=== PATIENT | male | born 1945 | race Caucasian/White ===

== ENCOUNTER 2016-10-07 06:55 | Inpatient (IN) | payer MEDICARE, BC ==
[~2016-10-07] VITALS: Ht 175.3 cm; Wt 96.2 kg
[2016-10-07] VITALS (12 sets, daily range): BP systolic 131–163; BP diastolic 64–98
[2016-10-07] MEDS ORDERED: ALPHA LIPOIC A300 MG PO (07:29)
[2016-10-07] MEDS ORDERED: OMEPRAZOLE MAGN20 MG PO (07:29)
[2016-10-07] MEDS ORDERED: BENAZEPRIL HCL20 MG ORAL (07:29)
[2016-10-07] MEDS ORDERED: ATORVASTATIN CA40 MG ORAL (07:29)
[2016-10-07] MEDS ORDERED: COREG25 MG ORAL (07:29)
[2016-10-07] MEDS ORDERED: AMLODIPINE BES2.5 MG ORAL (07:29)
[2016-10-07] MEDS ORDERED: GLUCOPHAGE XR500 MG ORAL (07:29)
--- NOTE | 2016-10-07 07:29 | Pre-Procedure Note/Attestation ---
Pre-Procedure Note/Attestation Complete Prior to Procedure Planned Procedure: right Procedure Narrative: Right knee arthroplasty Indications for Procedure Pre-Operative Diagnosis: Right knee arthritis Attestation I attest that I discussed the nature of the procedure; its benefits; risks and complications; and alternatives (and the risks and benefits of such alternatives ), prior to the procedure, with the patient (or the patient's legal investment representative). I attest that, if there was a reasonable possibility of needing a blood transfusion, the patient (or the patient's legal investment representative) was given the [facility] standardized written summary, pursuant to the [place] Blood Safety Act ([place] Health and Safety Code # 1645, as amended). I attest that I re-evaluated the patient just prior to the surgery and that there has been no change in the patient's H&P, except as documented below: ADAM SHAH Oct 07, 2016 07:29
[2016-10-07 08:25] LABS: BASOPHILS % (AUTO) 0.8 % (0.0-2.0); EOSINOPHILS % (AUTO) 2.4 % (0.0-3.0); LYMPHOCYTES % (AUTO) 20.8 % (20.0-45.0); MEAN CORPUSCULAR HEMOGLOBIN 26.9 PG (27.0-31.0); MEAN CORPUSCULAR HGB CONC 31.2 G/DL (32.0-36.0); MEAN CORPUSCULAR VOLUME 86 FL (80-99); MEAN PLATELET VOLUME 10.7 FL (6.5-10.1); PLATELET COUNT 141 K/UL (150-450); RED BLOOD COUNT 4.91 M/UL (4.70-6.10); RED CELL DISTRIBUTION WIDTH 13.9 % (11.6-14.8); WHITE BLOOD COUNT 6.1 K/UL (4.8-10.8)
[2016-10-07 08:35] LABS: PROTHROMBIN TIME 10.7 SEC (9.30-11.50)
[2016-10-07 08:38] LABS: ANION GAP 13 (5-15); CALCIUM 9.6 mg/dL (8.6-10.2); CARBON DIOXIDE 26 mEQ/L (20-30); CHLORIDE 105 mEQ/L (98-107); CREATININE 1.1 mg/dL (0.7-1.2); HEMOLYSIS 12; POTASSIUM 3.7 mEQ/L (3.4-4.9); SODIUM 144 mEQ/L (135-145)
[2016-10-07] MEDS ORDERED: Enoxaparin 40mg Inj SUBQ SCH (09:00)
--- NOTE | 2016-10-07 09:09 | Diagnostic Imaging Report ---
Indication: Dyspnea Comparison: None A single view chest radiograph was obtained. Findings: Left hemidiaphragm is elevated. No definite infiltrate or pulmonary vascular congestion identified. The heart is enlarged. The aorta is mildly enlarged consistent with atherosclerotic vascular disease. The bones are osteopenic. Impression: No acute disease
[2016-10-07] MEDS ORDERED: Ropivacaine 5mg/ml Vial 20ml INJ ONE (09:18)
[2016-10-07] MEDS ORDERED: Bacitracin 50000 Units Vial ONE ×2 (09:20→11:33)
[2016-10-07] MEDS ORDERED: Ketorolac 60mg Inj ONE (09:20)
[2016-10-07] MEDS ORDERED: Dexamethasone 4mg/ml vial ONE (09:20)
[2016-10-07] MEDS ORDERED: Bupivacaine w/Epi 0.25% 30ml Vial INJ ONE (09:49)
[2016-10-07] MEDS ORDERED: Bupivacaine w/Epi 0.5% 30ml Vial INJ ONE (09:49)
[2016-10-07] MEDS ORDERED: NS Irrig 1000ml ONE (10:00)
[2016-10-07] MEDS ORDERED: fentaNYL 100 mcg/2 mL IV ONE (10:00)
[2016-10-07] MEDS ORDERED: Propofol 10mg/ml 100ml btl IV ONE (10:00)
[2016-10-07] MEDS ORDERED: Sterile Water Irrig 1000ml IRRIG ONE (10:00)
[2016-10-07] MEDS ORDERED: LR 1000ml ONE (10:00)
[2016-10-07] MEDS ORDERED: LR 1000ml 1,000 ML IVLG SCH (11:12)
--- NOTE | 2016-10-07 11:12 | Anethesia Preoperative Eval ---
Anesthesia Pre-op PMH/ROS General Date of Evaluation: Oct 07, 2016 Time of Evaluation: 09:48 Anesthesiologist: Brittny ASA Score: ASA 3 Mallampati Score Class I : Soft palate, uvula, fauces, pillars visible Class II: Soft palate, uvula, fauces visible Class III: Soft palate, base of uvula visible Class IV: Only hard plate visible Mallampati Classification: Class III Surgeon: Rosas Diagnosis: R knee DJD Surgical Procedure: R knee TKA Anesthesia History: none Social History: smoking - h/o Family History: no anesthesia problems Allergies: Coded Allergies: IODINATED CONTRAST- ORAL AND IV DYE (Unverified Allergy, Unknown, 10/06/16) Uncoded Allergies: iodine contrast (Adverse Reaction, Unknown, 10/06/16) cant have iodine contrast per md Medications: see eMAR Past Medical History Cardiovascular: Reports: HTN Pulmonary: Reports: ASHWINI, Denies: COPD, asthma, other Gastrointestinal/Genitourinary: Reports: GERD, Denies: CRI, ESRD, other Neurologic/Psychiatric: Reports: other - chronic pain, Denies: CVA, TIA, dementia, depression/anxiety Endocrine: Reports: DM - on pills, Denies: hypothyroidism, other, steroids HEENT: Denies: [place] (L), [place] (R), cataract (L), cataract (R), glaucoma, other Hematology/Immune: Denies: DVT, anemia, bleeding disorder, other Musculoskeletal/Integumentary: Reports: DJD, Denies: DDD, OA, RA, edema, other Other: obesity PMH Narrative: as above PSxH Narrative: bilateral hips replacement hernia repair Anesthesia Pre-op Phys. Exam Physician Exam Last Vital Signs Date Time Temp Pulse Resp B/P Pulse Ox O2 Delivery O2 Flow Rate FiO2 10/07/16 07:19 98.1 61 20 135/87 97 Room Air Constitutional: NAD Neurologic: CN 2-12 intact Cardiovascular: RRR Respiratory: CTA Gastrointestinal: other - obesty Airway Exam Mallampati Score: Class III MO: limited Neck: short ROM: limited Teeth: missing Dentures: no lower, no upper Anesthesia Pre-op A/P Labs Hematology Test 10/07/16 07:55 White Blood Count 6.1 K/UL (4.8-10.8) Red Blood Count 4.91 M/UL (4.70-6.10) Hemoglobin 13.2 G/DL (14.2-18.0) L Hematocrit 42.2 % (42.0-52.0) Mean Corpuscular Volume 86 FL (80-99) Mean Corpuscular Hemoglobin 26.9 PG (27.0-31.0) L Mean Corpuscular Hemoglobin Concent 31.2 G/DL (32.0-36.0) L Red Cell Distribution Width 13.9 % (11.6-14.8) Platelet Count 141 K/UL (150-450) L Mean Platelet Volume 10.7 FL (6.5-10.1) H Neutrophils (%) (Auto) 65.0 % (45.0-75.0) Lymphocytes (%) (Auto) 20.8 % (20.0-45.0) Monocytes (%) (Auto) 11.0 % (1.0-10.0) H Eosinophils (%) (Auto) 2.4 % (0.0-3.0) Basophils (%) (Auto) 0.8 % (0.0-2.0) Coagulation Test 10/07/16 07:55 Prothrombin Time 10.7 SEC (9.30-11.50) Prothromb Time International Ratio 1.0 (0.9-1.1) Activated Partial Thromboplast Time 27 SEC (23-33) Chemistry Test 10/07/16 07:55 Sodium Level 144 mEQ/L (135-145) Potassium Level 3.7 mEQ/L (3.4-4.9) Chloride Level 105 mEQ/L (98-107) Carbon Dioxide Level 26 mEQ/L (20-30) Anion Gap 13 (5-15) Blood Urea Nitrogen 17 mg/dL (7-23) Creatinine 1.1 mg/dL (0.7-1.2) Estimat Glomerular Filtration Rate mL/min (>60) Glucose Level 141 mg/dL (74-106) H Calcium Level 9.6 mg/dL (8.6-10.2) Studies Pre-op Studies: EKG - NSR Risk Assessment & Plan Assessment: ASA 3 Plan: SAB vs GA R femoral nerve block for p/op pain control Status Change Before Surgery: No Pre-Antibiotics Drug: Ancef 2 gr. Given Within 1 Hr of Incision: Yes Time Given: 10:38 DERRICK DAVIS M.D. Oct 07, 2016 11:12
[2016-10-07] MEDS ORDERED: DiphenhydrAMINE 50mg/ml Inj IVP PRN (11:15)
[2016-10-07] MEDS ORDERED: Hydromorphone 0.5mg/0.5ml inj IVP PRN (11:15)
--- NOTE | 2016-10-07 12:16 | Diagnostic Imaging Report ---
Indication: Pain 2 views of the right knee were obtained. Findings: Intraoperative imaging showing a right knee during joint replacement surgery. The femoral component is present. Impression: Intraoperative imaging
--- NOTE | 2016-10-07 12:34 | Brief Operative Note ---
Immediate Post Operative Note Operative Note Pre-op Diagnosis: Right knee arthritis Procedure: Right knee arthroplasty Post-op Diagnosis: same as pre-op Findings: consistent w/pre-op dx studies Surgeon: Rosas Anesthesiologist: Ben Anesthesia: general, regional Specimen: yes Complications: none Condition: stable Estimated Blood Loss: minimal Drains: none Tourniquet time: 68 - min Implant(s) used?: Yes ADAM SHAH Oct 07, 2016 12:34
--- NOTE | 2016-10-07 13:10 | Immediate Post-Op Evaluation ---
Immediate Post-Op Evalulation Immediate Post-Op Evalulation Procedure: R knee TKA Date of Evaluation: Oct 07, 2016 Time of Evaluation: 12:23 IV Fluids: 1400 Blood Products: none Estimated Blood Loss: 100 Urinary Output: 400 Blood Pressure Systolic: 148 Blood Pressure Diastolic: 86 Pulse Rate: 62 Respiratory Rate: 20 O2 Sat by Pulse Oximetry: 99 Temperature (Fahrenheit): 97.3 Pain Score (1-10): 2 Nausea: No Vomiting: No Complications none Patient Status: awake, patent, none Hydration Status: adequate DERRICK DAVIS M.D. Oct 07, 2016 13:10
--- NOTE | 2016-10-07 14:14 | Diagnostic Imaging Report ---
Indication: Pain 2 views of the right knee were obtained. Findings: Cemented total arthroplasty demonstrated. Soft tissue air and swelling noted. Hardware appears unremarkable. No fracture seen. Impression: Unremarkable postop following total knee arthroplasty
[2016-10-07] MEDS ORDERED: oxyCODONE 5mg IR tab ORAL PRN (14:30)
[2016-10-07] MEDS ORDERED: HYDROmorphone 1mg/ml Carpuject SUBQ PRN (14:30)
[2016-10-07] MEDS ORDERED: Morphine Sulfate 4mg/ml Inj IVP PRN (14:30)
[2016-10-07] MEDS ORDERED: Milk of Magnesia 30ml Ud ORAL PRN (16:00)
--- NOTE | 2016-10-07 17:01 | Operative Note - Dictated ---
DATE OF OPERATION: 10/07/2016 SURGEON: Kalia Pillai M.D. HELICOPTER TECHNICIAN: None. ANESTHESIA: General plus regional plus local. COMPLICATIONS: None. ANTIBIOTICS: Ancef. PREOPERATIVE DIAGNOSIS: Right knee arthritis. POSTOPERATIVE DIAGNOSIS: Right knee arthritis. PROCEDURE PERFORMED: Right total knee arthroplasty using Melinda persona cemented cruciate retaining narrow right size 10 femur, Melinda persona natural tibia cemented 5 degree stemmed right size F tibia, all-polyethylene 32 x 8.5 mm cemented patella, and an ultra congruent 10 mm articular fixed bearing surface insert. TOURNIQUET TIME: 68 minutes. BACKGROUND HISTORY: The patient has had a long-standing right knee pain refractory to nonoperative management. All risks, benefits, and alternatives to surgical intervention were discussed in great detail. Risks included, but were not limited to, bleeding, infection, neurovascular injury, need for additional surgical intervention, failure of pain relief, arthrofibrosis, complications of anesthesia, blood clots, stroke, heart attack, and potential . He understood these risks, amongst others, and consent was signed. PROCEDURE IN DETAIL: The patient was brought into the operating room and placed supine on the operating table. The right knee was correctly verified for surgical site and prepped and draped in standard sterile fashion. An Esmarch bandage was used to exsanguinate the limb and the tourniquet inflated at 275 mmHg above atmospheric pressure for a period of 68 minutes. A midline incision was created and a medial parapatellar arthrotomy was performed. There was extensive anterior and lateral degenerative changes noted. The infrapatellar and suprapatellar fat pads were resected. The remnant menisci were removed. Intramedullary guide was used in the femur to create a 5-degree valgus distal cut. It was sized to a 10 in order to avoid notching and all five bone cuts were created. A bone plug was used in the canal to prevent postoperative bleeding. Attention was then turned to the tibia. Using extramedullary guidance in preoperative templating, the anterior cruciate ligament was resected and posterior cruciate ligament recessed. The proximal tibia was resected appropriately. After soft tissue balancing, gap check revealed symmetric flexion and extension gaps. The patella was everted and resected of 8.5 mm bone. It measured to a size 32 and lug holes were created to accept the implant. Trial reduction using a 10 femur, F tibia, 32 mm patella, and 10 mm insert revealed extension to 0 degrees, no medial or lateral laxity, excellent patellar thumbs off tracking, and flexion to 150 degrees. There was no tibial tray lift-off with terminal flexion. There was no mid flexion laxity. The tibia was prepared using a boss drill and keel punch. Punctate holes were created to accept cementation. Pulsatile lavage was used to cleanse the bone ends and they were then thoroughly dried. The real components were cemented into position. There was no change in final range of motion, patellar tracking, or stability. Copious irrigation was utilized throughout the wound and finger sweep revealed no retained foreign body or debris. The surrounding tissues were injected with 40 mL 0.25% Marcaine with epinephrine mixed with Toradol and Decadron. The extensor mechanism was then reapproximated using #1 Vicryl and more superficial tissues with #0 and 2-0 Vicryl. Monocryl was utilized in a subcuticular fashion. Steri-Strips were used over Mastisol. Dry sterile dressing was applied. A compressive wrap was fitted. There were no complications. I attest that I performed the entire operation. He was transferred to recovery in good condition. Kalia Pillai M.D. DR: YARELIS JOB#: [id number] CC: ATIF
[2016-10-07] MEDS: D5 1/2NS w/KCl 20mEq 1,000 ML IV SCH (17:25)
[2016-10-07] MEDS: ceFAZolin sod 2 GM in D5W 110 ML IV SCH (17:25)
[2016-10-07] MEDS: metFORMIN 500mg tab ORAL SCH (17:25)
[2016-10-07] MEDS: Docusate 100mg cap ORAL SCH (17:26)
[2016-10-07] MEDS: Carvedilol 25mg Tab ORAL SCH (20:20)
[2016-10-07] MEDS: oxyCONTIN 20mg tab ORAL SCH (20:20)
[2016-10-07] MEDS: Benazepril 10mg tab ORAL SCH (20:21)
[2016-10-07] MEDS: HYDROmorphone 1mg/ml Carpuject SUBQ PRN (23:06)
[2016-10-08] VITALS: BP 136/83
[2016-10-08] MEDS: ceFAZolin sod 2 GM in D5W 110 ML IV SCH (02:59)
[2016-10-08 04:00] VITALS: BP 136/90
[2016-10-08] MEDS: D5 1/2NS w/KCl 20mEq 1,000 ML IV SCH ×2 (04:50→17:08)
[2016-10-08] MEDS: Docusate 100mg cap ORAL SCH ×3 (08:04→17:07)
[2016-10-08] MEDS: celeBREX 200mg Cap **SURGERY PATIENTS ONLY ORAL SCH (08:04)
[2016-10-08] MEDS: Benazepril 10mg tab ORAL SCH ×2 (08:05→20:49)
[2016-10-08] MEDS: metFORMIN 500mg tab ORAL SCH ×2 (08:05→17:08)
[2016-10-08] MEDS: Carvedilol 25mg Tab ORAL SCH ×2 (08:06→20:48)
[2016-10-08] MEDS: oxyCONTIN 20mg tab ORAL SCH ×2 (08:06→20:48)
[2016-10-08] MEDS: HYDROmorphone 1mg/ml Carpuject SUBQ PRN (08:07)
[2016-10-08 08:12] VITALS: BP 142/90
--- NOTE | 2016-10-08 08:41 | 48 Hour Post Anesthesia Eval ---
Post Anesthesia Evaluation Procedure: R knee TKA Date of Evaluation: Oct 08, 2016 Time of Evaluation: 07:18 Blood Pressure Systolic: 142 0: 90 Pulse Rate: 69 Respiratory Rate: 18 Temperature (Fahrenheit): 97.3 O2 Sat by Pulse Oximetry: 96 Airway: patent Nausea: No Vomiting: No Pain Intensity: 3 Hydration Status: adequate Cardiopulmonary Status: Stable Mental Status/LOC: patient returned to baseline Follow-up Care/Observations: 0 Post-Anesthesia Complications: 0 Follow-up care needed: N/A Baldo Patricio MD Oct 08, 2016 08:41
--- NOTE | 2016-10-08 08:50 | Consultation ---
Consult Note Assessment/Plan DATE OF CONSULTATION: 10/08/2016 INTERNAL MEDICINE CONSULTATION CONSULTING PHYSICIAN: Kalia Pillai M.D. CHIEF COMPLAINT: Knee arthritis. HISTORY OF PRESENT ILLNESS: The patient was admitted yesterday for elective R total knee arthroplasty for severe arthritis. The patient states he is feeling well except for mild postoperative pain. PAST MEDICAL HISTORY: GERD, HTN, DM, ASHWINI, OA ALLERGIES: iodine MEDICATIONS: reviewed SOCIAL HISTORY: He does not drink, smoke, or use any illicit drugs. REVIEW OF SYSTEMS: Otherwise unremarkable. He does not have any chest pain or cardiac disorder. He has no history of cancer. PHYSICAL EXAMINATION: GENERAL: The patient is alert and responds appropriately. VITAL SIGNS: Normal. He is overweight. SKIN: Warm and dry. HEENT: The head is normocephalic. NECK: No jugular venous distention. CHEST: Clear. CARDIAC: Rhythm is regular. ABDOMEN: Soft and nontender. Liver and spleen are not enlarged. EXTREMITIES: No clubbing, cyanosis, or edema. He has immobilizer on the R leg and sequential compression device on the L leg. ASSESSMENT: 1. Postoperative status for L total knee arthroplasty. 2. Osteoarthritis 3. Hyperlipidemia, DM, ASHWINI, GERD PLAN: The patient's medications were reviewed and will be continued. I will be happy to follow hir in the hospital until discharge. He may need discharge to a snf facility for rehabilitation. <Electronically signed by FRANCINE BOATENG > 04/08/16 2251 : FRANCINE BOATENG Oct 08, 2016 08:50
[2016-10-08 11:37] VITALS: BP 110/67
--- NOTE | 2016-10-08 12:17 | Orthopedic Progress Note ---
Orthopedic - Progress Note Subjective Symptoms: c/o post-op knee pain Additional Comments POD 1 right TKA Objective Vital Signs Last 24 Hour Vital Signs Date Time Temp Pulse Resp B/P Pulse Ox O2 Delivery O2 Flow Rate FiO2 10/08/16 11:37 97.7 63 20 110/67 93 Room Air 10/08/16 08:41 69 18 96 10/08/16 08:12 97.3 69 18 142/90 96 Nasal Cannula 2.0 10/08/16 08:06 62 136/90 10/08/16 08:05 136/90 10/08/16 08:05 62 136/90 10/08/16 07:54 Nasal Cannula 2.0 28 10/08/16 07:53 96 Nasal Cannula 2.0 10/08/16 04:00 97.3 62 18 136/90 98 Nasal Cannula 2.0 10/08/16 00:00 97.9 59 19 136/83 98 Nasal Cannula 2.0 10/07/16 20:21 144/91 10/07/16 20:20 75 144/91 10/07/16 20:00 97.9 75 18 144/91 96 Nasal Cannula 2.0 10/07/16 19:30 96 Nasal Cannula 2.0 10/07/16 19:30 Nasal Cannula 2.0 28 10/07/16 16:10 98.1 59 20 133/64 96 Nasal Cannula 2.0 10/07/16 14:40 97.7 69 20 140/90 98 Nasal Cannula 2.0 10/07/16 13:47 97.3 51 18 131/88 97 Nasal Cannula 3.0 10/07/16 13:20 97.8 50 15 159/87 98 Nasal Cannula 3.0 10/07/16 13:10 62 20 99 10/07/16 13:05 48 17 145/86 98 Nasal Cannula 3.0 10/07/16 12:55 97.5 10/07/16 12:50 50 16 138/87 98 Nasal Cannula 3.0 10/07/16 12:40 48 17 143/82 98 Nasal Cannula 3.0 10/07/16 12:29 48 14 163/80 98 Nasal Cannula 3.0 10/07/16 12:24 50 15 139/88 98 Simple Mask 6.0 10/07/16 12:19 97.0 50 15 154/98 98 Simple Mask 6.0 I&O Intake and Output 10/07/16 10/08/16 19:00 07:00 Intake Total 2222.5 ml 1380 ml Output Total 1200 ml 1000 ml Balance 1022.5 ml 380 ml Intake Oral 600 ml 480 ml IV Total 1622.5 ml 900 ml Output Urine Total 1100 ml 1000 ml Estimated Blood Loss 100 ml # Voids 1 2 Wound: clean, dry Drains: none Neuro Status: normal Vascular Status: normal Additional Comments Residual effects from nerve block still evident. In CPM Assessment Procedure Performed Right knee arthroplasty Plan Plan: PT, discharge to home Additional Comments Plan home if able and safe tomorrow. PT and ROM exercises ADAM SHAH Oct 08, 2016 12:17
[2016-10-08] MEDS: Enoxaparin 40mg Inj SUBQ SCH (13:59)
[2016-10-08 15:54] VITALS: BP 124/77
[2016-10-08] MEDS: Norco 7.5mg/325mg tab ORAL PRN (17:08)
[2016-10-08 20:00] VITALS: BP 141/87
[2016-10-09] MEDS: HYDROmorphone 1mg/ml Carpuject SUBQ PRN ×2 (00:26→05:24)
[2016-10-09 00:35] VITALS: BP 136/76
[2016-10-09 04:00] VITALS: BP 126/76
[2016-10-09] MEDS: D5 1/2NS w/KCl 20mEq 1,000 ML IV SCH ×2 (07:30→20:43)
[2016-10-09] MEDS: celeBREX 200mg Cap **SURGERY PATIENTS ONLY ORAL SCH (07:57)
[2016-10-09] MEDS: metFORMIN 500mg tab ORAL SCH ×2 (07:57→17:51)
[2016-10-09] MEDS: oxyCONTIN 20mg tab ORAL SCH ×2 (07:58→20:43)
[2016-10-09 08:00] VITALS: BP 153/85
[2016-10-09] MEDS: Carvedilol 25mg Tab ORAL SCH ×2 (08:02→20:42)
[2016-10-09] MEDS: Docusate 100mg cap ORAL SCH ×3 (08:03→17:51)
[2016-10-09] MEDS: Benazepril 10mg tab ORAL SCH ×2 (08:04→20:42)
[2016-10-09] MEDS: Enoxaparin 40mg Inj SUBQ SCH (08:09)
[2016-10-09 11:58] VITALS: BP 116/73
--- NOTE | 2016-10-09 15:26 | Orthopedic Progress Note ---
Orthopedic - Progress Note Subjective Symptoms: c/o post-op knee pain Objective Vital Signs Last 24 Hour Vital Signs Date Time Temp Pulse Resp B/P Pulse Ox O2 Delivery O2 Flow Rate FiO2 10/09/16 11:58 97.3 63 20 116/73 92 Room Air 10/09/16 08:04 153/85 10/09/16 08:04 94 153/85 10/09/16 08:02 94 153/85 10/09/16 08:00 97.7 94 19 153/85 95 Room Air 10/09/16 04:00 97.5 61 18 126/76 93 Room Air 10/09/16 00:35 97.5 59 18 136/76 96 Room Air 10/08/16 20:49 141/87 10/08/16 20:48 64 141/87 10/08/16 20:00 97.3 64 18 141/87 94 Room Air 10/08/16 19:30 Nasal Cannula 2.0 28 10/08/16 19:30 95 Nasal Cannula 2.0 28 10/08/16 15:54 97.8 60 20 124/77 92 Nasal Cannula 2.0 I&O Intake and Output 10/08/16 10/09/16 19:00 07:00 Intake Total 1985 ml 1035 ml Output Total 950 ml 650 ml Balance 1035 ml 385 ml Intake Oral 1160 ml 360 ml IV Total 825 ml 675 ml Output Urine Total 950 ml 650 ml # Voids 2 Wound: clean, dry Drains: none Neuro Status: normal Vascular Status: normal Assessment Procedure Performed Right knee arthroplasty Plan Plan: PT, pain management Additional Comments Rehab discharge when facility bed available Continue working with PT ADAM SHAH Oct 09, 2016 15:26
[2016-10-09 16:00] VITALS: BP 137/81
[2016-10-09] MEDS: Norco 7.5mg/325mg tab ORAL PRN (16:17)
--- NOTE | 2016-10-09 16:58 | General Progress Note ---
Assessment/Plan Assessment/Plan 1. Postoperative status for L total knee arthroplasty. 2. Osteoarthritis 3. Hyperlipidemia, DM, ASHWINI, GERD doing well BP and BS ok dc planning Subjective Constitutional: Denies: fever Allergies: Coded Allergies: IODINATED CONTRAST- ORAL AND IV DYE (Unverified Allergy, Unknown, 10/06/16) Uncoded Allergies: iodine contrast (Adverse Reaction, Unknown, 10/06/16) cant have iodine contrast per md Subjective post op pain better Objective Last 24 Hour Vital Signs Date Time Temp Pulse Resp B/P Pulse Ox O2 Delivery O2 Flow Rate FiO2 10/09/16 16:00 97.3 60 19 137/81 95 Room Air 10/09/16 11:58 97.3 63 20 116/73 92 Room Air 10/09/16 08:04 153/85 10/09/16 08:04 94 153/85 10/09/16 08:02 94 153/85 10/09/16 08:00 97.7 94 19 153/85 95 Room Air 10/09/16 04:00 97.5 61 18 126/76 93 Room Air 10/09/16 00:35 97.5 59 18 136/76 96 Room Air 10/08/16 20:49 141/87 10/08/16 20:48 64 141/87 10/08/16 20:00 97.3 64 18 141/87 94 Room Air 10/08/16 19:30 Nasal Cannula 2.0 28 10/08/16 19:30 95 Nasal Cannula 2.0 28 Intake and Output 10/08/16 10/09/16 19:00 07:00 Intake Total 1985 ml 1035 ml Output Total 950 ml 650 ml Balance 1035 ml 385 ml Intake Oral 1160 ml 360 ml IV Total 825 ml 675 ml Output Urine Total 950 ml 650 ml # Voids 2 Height (Feet): 5 Height (Inches): 9.00 Weight (Pounds): 212 General Appearance: no apparent distress Neck: supple Cardiovascular: normal rate Respiratory/Chest: lungs clear FRANCINE BOATENG Oct 09, 2016 16:58
[2016-10-09] MEDS ORDERED: Tubing IV Secondary IV ONE (18:10)
[2016-10-09 20:05] VITALS: BP 149/86
[2016-10-10 00:09] VITALS: BP 149/81
[2016-10-10 04:00] VITALS: BP 140/80
[2016-10-10] MEDS: Norco 7.5mg/325mg tab ORAL PRN ×2 (07:39→17:50)
[2016-10-10 08:00] VITALS: BP 159/89
[2016-10-10] MEDS: Benazepril 10mg tab ORAL SCH (08:41)
[2016-10-10] MEDS: metFORMIN 500mg tab ORAL SCH ×2 (08:41→17:48)
[2016-10-10] MEDS: oxyCONTIN 20mg tab ORAL SCH (08:41)
[2016-10-10] MEDS: celeBREX 200mg Cap **SURGERY PATIENTS ONLY ORAL SCH (08:42)
[2016-10-10] MEDS: Docusate 100mg cap ORAL SCH ×3 (08:43→18:00)
[2016-10-10] MEDS: Carvedilol 25mg Tab ORAL SCH (08:44)
--- NOTE | 2016-10-10 08:44 | General Progress Note ---
Assessment/Plan Assessment/Plan 1. Postoperative status for L total knee arthroplasty. 2. Osteoarthritis 3. Hyperlipidemia, DM, ASHWINI, GERD doing well BP and BS ok ok for dc Subjective Constitutional: Denies: fever Allergies: Coded Allergies: IODINATED CONTRAST- ORAL AND IV DYE (Unverified Allergy, Unknown, 10/06/16) Uncoded Allergies: iodine contrast (Adverse Reaction, Unknown, 10/06/16) cant have iodine contrast per md Subjective post op pain better Objective Last 24 Hour Vital Signs Date Time Temp Pulse Resp B/P Pulse Ox O2 Delivery O2 Flow Rate FiO2 10/10/16 08:00 97.5 78 20 159/89 95 Room Air 10/10/16 04:00 98.1 66 19 140/80 96 Room Air 10/10/16 00:09 97.5 67 18 149/81 97 Room Air 10/09/16 20:42 149/86 10/09/16 20:42 69 149/86 10/09/16 20:30 Room Air 10/09/16 20:29 96 Room Air 10/09/16 20:05 98.1 69 17 149/86 97 Room Air 10/09/16 16:00 97.3 60 19 137/81 95 Room Air 10/09/16 11:58 97.3 63 20 116/73 92 Room Air Intake and Output 10/09/16 10/10/16 19:00 07:00 Intake Total 750 ml 1011.25 ml Output Total 550 ml 1400 ml Balance 200 ml -388.75 ml Intake Oral 600 ml 240 ml IV Total 150 ml 771.25 ml Output Urine Total 550 ml 1400 ml Height (Feet): 5 Height (Inches): 9.00 Weight (Pounds): 212 General Appearance: no apparent distress Neck: supple Cardiovascular: normal rate Respiratory/Chest: lungs clear FRANCINE BOATENG Oct 10, 2016 08:44
[2016-10-10] MEDS: Enoxaparin 40mg Inj SUBQ SCH (08:49)
[2016-10-10] MEDS: D5 1/2NS w/KCl 20mEq 1,000 ML IV SCH (09:59)
[2016-10-10 12:00] VITALS: BP 127/79
[2016-10-10] MEDS ORDERED: CELEBREX200 MG ORAL (15:53)
[2016-10-10] MEDS ORDERED: COLACE100 MG ORAL (15:54)
[2016-10-10] MEDS ORDERED: COREG25 MG ORAL (15:54)
[2016-10-10] MEDS ORDERED: LOVENOX10 M4 SUBQ (15:56)
[2016-10-10] MEDS ORDERED: NORCO 7.5/3251 EA ORAL (15:57)
[2016-10-10] MEDS ORDERED: HYDROMORPHO2 MG/1 M5 SUBQ ×2 (15:59→16:01)
[2016-10-10 16:00] VITALS: BP 138/74
[2016-10-10] MEDS ORDERED: OXYCONTIN20 MG ORAL (16:02)
[2016-10-10] MEDS ORDERED: HYDROCODON-ACE1 EA16 ORAL (16:03)
[2016-10-10] MEDS ORDERED: MILK OF MA400 MG/51 ORAL (16:04)
[2016-10-10] MEDS ORDERED: OXYCODONE HCL5 MG ORAL (16:08)
[2016-10-10] MEDS ORDERED: PROTONIX40 MG ORAL (16:08)
[2016-10-10] MEDS ORDERED: RESTORIL7.5 MG ORAL (16:09)
[2016-10-10] MEDS ORDERED: Fleet's Enema 133ml RECTAL ONE (16:30)
--- NOTE | 2016-10-13 08:44 | Discharge Summary ---
Discharge Summary Hospital Course Date of Admission Oct 07, 2016 at 06:55 Date of Discharge Oct 10, 2016 at 18:29 Admitting Diagnosis severe R knee osteoarthritis Reason for Hospitalization: elective surgery HPI Valerie Cooper is a 71 year old male who was admitted on Oct 07, 2016 at 06:55 for Rt Knee Osteoarthritis All conservative measures failed and the patient was admitted for elective surgery Consultations dr Jane IM /pulmo/critical care Procedures s/p 10/07 Right total knee arthroplasty Hospital Course s/p elective surgery 10/07 course of recovery uneventful pain management PT eval and Rx Neurovascular status clsoely monitored, intact dressing C/D/I afebrile DVT prophylaxis with Lovenox IS while at the bed bowel regimen voided freely tolerated diet BP and BS were stable ( anti HTN meds from home and Metformin continued) statin continued patient required placement to SNF for a short term rehab Lovenox for DVT prophylaxis in SNF patient was stable for dc FINAL DIAGNOSES severe Right knee arthritis. s/p 10/07 Right total knee arthroplasty postoperative pain HTN DM Hyperlipidemia ASHWINI GERD Discharge Medications Continued Medications: Amlodipine Besylate* (Amlodipine Besylate*) 2.5 Mg Tablet 2.5 MG ORAL DAILY, TAB Atorvastatin Calcium* (Atorvastatin Calcium*) 40 Mg Tablet 40 MG ORAL DAILY, TAB Benazepril Hcl* (Benazepril Hcl*) 20 Mg Tablet 20 MG ORAL EVERY 12 HOURS, TAB Carvedilol (Coreg) 25 Mg Tablet 25 MG ORAL EVERY 12 HOURS, TAB Carvedilol (Coreg) 25 Mg Tablet 25 MG ORAL EVERY 12 HOURS, TAB Celecoxib* (Celebrex*) 200 Mg Capsule 200 MG ORAL DAILY, CAP Docusate Sodium* (Colace*) 100 Mg Capsule 100 MG ORAL THREE TIMES A DAY, CAP Enoxaparin* (Lovenox*) 40 Mg/0.4 Ml Inj 40 MG SUBQ DAILY Hydrocodone/Acetaminophen (Hydrocodon-Acetaminoph 7.5-325) 1 Each Tablet 1 TAB ORAL Q4H PRN for Mild Pain (Pain Scale 1-3), #30 TAB 0 Refills Hydrocodone/Acetaminophen 7.5-325* (Hydrocodon-Acetaminoph 7.5-325*) 1 Each Tablet 1 TAB ORAL Q4H PRN for Mild Pain (Pain Scale 1-3), #30 TAB 0 Refills Hydromorphone Hcl/Pf (Hydromorphone 2 Mg/Ml Syringe*) 2 Mg/1 Ml Disp.syrin 2 MG SUBQ Q3HR, EA 0 Refills Hydromorphone Hcl/Pf (Hydromorphone 2 Mg/Ml Syringe*) 2 Mg/1 Ml Disp.syrin 1 MG SUBQ Q4HR for Mild Pain (Pain Scale 1-3), EA 0 Refills Magnesium Hydroxide* (Milk Of Magnesia*) 400 Mg/5 Ml Oral.susp 30 ML ORAL DAILY, ML Metformin Hcl (Glucophage Xr) 500 Mg Tab.er.24h 500 MG ORAL BID, TAB Oxycodone Hcl Er* (Oxycontin*) 20 Mg Tab.er.12h 20 MG ORAL EVERY 12 HOURS, TAB Oxycodone Hcl Ir* (Roxicodone Ir*) 5 Mg Tablet 5 MG ORAL Q1HR for BREAKTHROUGH PAIN, TAB Pantoprazole* (Protonix*) 40 Mg Tablet.dr 40 MG ORAL DAILY, TAB Temazepam* (Restoril*) 7.5 Mg Capsule 7.5 MG ORAL BEDTIME, #10 CAP 0 Refills Discontinued Medications: Alpha Lipoic Acid (Alpha Lipoic Acid) 300 Mg Capsule 600 MG PO DAILY, CAP Omeprazole Magnesium (Omeprazole Magnesium) 20 Mg Capsule.dr 20 MG PO DAILY, CAP Discharge Condition Upon Discharge: stable Discharge Disposition Patient was discharged to SNF/Subacute Facility(03) Discharge Diagnoses: Discharge Instructions Discharge Instructions Special Instructions I have been assigned to complete a D/C Summary on this account. I was not involved in the patient management Therese Pennington NP ([place]) Oct 13, 2016 08:44
== END 2016-10-10 18:29 | DRG 470 ==
LOC: SDSOVERFLO 06:55 → 3E 13:40
PROC: 0SRC0J9 Replacement of Right Knee Joint with Synthetic Substitute, Cemented, Open Approach (ICD-10-PCS; principal; 2016-10-07 10:30)
DX: M17.11 Unilateral primary osteoarthritis, right knee (principal); E11.21 Type 2 diabetes mellitus with diabetic nephropathy; I10 Essential (primary) hypertension; G47.33 Obstructive sleep apnea (adult) (pediatric); K21.9 Gastro-esophageal reflux disease without esophagitis; E78.5 Hyperlipidemia, unspecified; I70.0 Atherosclerosis of aorta; C88.0 Waldenstrom macroglobulinemia; Z88.8 Allergy status to other drugs, medicaments and biological substances
CPT/HCPCS: 36415; 71010; 80048; 82962; 85025; 85610; 85730; 86850; 86900; 86901; 87081; 93005; 94003; 94150; 94760